=== PATIENT | female | born 1995 | race Two or more races ===

== ENCOUNTER 2017-01-02 07:45 | Emergency (ER) | payer MEDICAID ==
[2017-01-02 09:06] LABS: CALCIUM 8.6 mg/dL (8.5-10.1); CARBON DIOXIDE 29.7 mmol/L (21-32); CHLORIDE SERUM 108 mmol/L (98-107); CREATININE SERUM 0.8 mg/dL (0.6-1.0); GFR1 > 60 mL/min; GLUCOSE SERUM 95 mg/dL (74-106); POTASSIUM SERUM 4.4 mmol/L (3.5-5.1); SODIUM SERUM 141 mmol/L (136-145)
[2017-01-02 09:11] LABS: ALBUMIN 3.5 g/dL (3.4-5.0); ALKALINE PHOSPHATASE 19 U/L (46-116); ALT/SGPT 15 U/L (14-59); AMYLASE 70 U/L (25-115); AST/SGOT 11 U/L (15-37); BILIRUBIN TOTAL 0.2 mg/dL (0.20-1.00); LIPASE 151 IU/L (73-393); TOTAL PROTEIN, SERUM 6.9 g/dL (6.4-8.2)
[2017-01-02 09:17] LABS: BASOPHIL % 0.4 % (0-2); PLATELET COUNT 236 x10^3mcL (130-400); RED CELL DISTRIBUTION WIDTH 13.3 % (11.5-14.5)
[2017-01-02 10:15] VITALS: BP 114/65
== END 2017-01-02 10:15 | disposition home or self-care (01) ==
LOC: ED 07:45
PROVIDERS: Specialist
DX: R10.32 Left lower quadrant pain (principal); N93.9 Abnormal uterine and vaginal bleeding, unspecified
CPT/HCPCS: 83880; J1885; J7030

== ENCOUNTER 2017-12-25 05:37 | Emergency (ER) | payer OTHER ==
[~2017-12-25] VITALS: Ht 167.6 cm; Wt 73.9 kg
[2017-12-25 07:58] VITALS: BP 135/80
== END 2017-12-25 07:58 | disposition home or self-care (01) ==
LOC: ED 05:37
DX: S61.512A Laceration without foreign body of left wrist, initial encounter (principal); W25.XXXA Contact with sharp glass, initial encounter; Y93.89 Activity, other specified; Y92.89 Other specified places as the place of occurrence of the external cause; Y99.8 Other external cause status
CPT/HCPCS: 90715; A4570; J2001

== ENCOUNTER 2017-12-27 20:54 | Emergency (ER) | payer OTHER ==
[~2017-12-27] VITALS: Ht 167.6 cm; Wt 75.5 kg
[2017-12-27 21:21] VITALS: BP 122/60; Ht 167.6 cm; Wt 75.5 kg
== END 2017-12-27 22:43 | disposition home or self-care (01) ==
LOC: ED 20:54
DX: S61.512D Laceration without foreign body of left wrist, subsequent encounter (principal); X58.XXXD Exposure to other specified factors, subsequent encounter

== ENCOUNTER 2018-01-05 15:13 | Emergency (ER) | payer OTHER ==
[~2018-01-05] VITALS: Ht 167.6 cm; Wt 73.0 kg
[2018-01-05 15:19] VITALS: Ht 167.6 cm; Wt 73.0 kg
[2018-01-05 15:55] VITALS: BP 125/55
== END 2018-01-05 15:55 | disposition home or self-care (01) ==
LOC: ED 15:13
DX: S61.512D Laceration without foreign body of left wrist, subsequent encounter (principal); X58.XXXD Exposure to other specified factors, subsequent encounter